=== PATIENT | female | born 1980 | race Two or more races ===

== ENCOUNTER 2019-12-28 16:21 | Emergency (ER) | payer SELFPAY ==
[~2019-12-28] VITALS: Ht 165.1 cm; Wt 143.6 kg
[~2019-12-28 16:21] MED LIST: AMOX500C PO; ANTI14DR4 OT
[2019-12-28 16:25] VITALS: BP 157/69
[2019-12-28] MEDS ORDERED: HYDROcodone/APAP 5/325MG 1 TAB TABLET PO ONE (17:00)
--- NOTE | 2019-12-28 17:14 | RAD ---
Exam: Right ankle 3 views INDICATION: Right ankle pain TECHNIQUE: Frontal, lateral and oblique views of the right ankle Comparisons: None FINDINGS: Evaluation is limited secondary to overlying material. Bone mineralization is normal. There is diffuse soft tissue swelling at the ankle. No acute fracture is identified. Joint spaces are well-maintained. IMPRESSION: Diffuse soft tissue swelling at the ankle without underlying acute osseous abnormality identified. Electronically signed by: Pierre Dutta MD (12/28/2019 5:11 PM) [id number]
--- NOTE | 2019-12-28 17:29 | PHYS DOC ---
Past Medical History Past Medical History: No Pertinent History Past Surgical History: No Surgical History Smoking Status: Never Smoker Alcohol Use: None General Adult EDM: Chief Complaint: ANKLE PROBLEM HPI: HPI: Patient is a 39 year old female, accompanied by her daughter, who presents to the emergency department with complaints of right lateral ankle pain and swelling after accidentally stepping into a hole in her yard and rolling her ankle. She currently rates her pain a 10 out of 10 on the pain scale, she denies any alleviating factors. The patient reports that the pain increases if she bears weight, she denies any radiation of the pain. Patient denies any head, neck, or back pain from the fall. Review of Systems: Review of Systems: Complete review of systems is negative unless otherwise documented in the HPI. Heart Score: Risk Factors: Risk Factors: DM, Current or recent (<one month) smoker, HTN, HLP, family history of CAD, obesity. Risk Scores: Score 0 - 3: 2.5% MACE over next 6 weeks - Discharge Home Score 4 - 6: 20.3% MACE over next 6 weeks - Admit for Clinical Observation Score 7 - 10: 72.7% MACE over next 6 weeks - Early Invasive Strategies Current Medications: Current Medications Medications (Trade) Dose Ordered Sig/Helen Start Time Stop Time Status Last Admin Dose Admin Acetaminophen/ Hydrocodone Bitart (Lortab 5/325) 1 tab 1X ONCE 12/28/19 17:00 12/28/19 17:01 DC Allergies: Allergies: Allergies Coded Allergies Type Severity Reaction Last Updated Verified No Known Drug Allergies 05/31/13 No Physical Exam: PE: Constitutional: Well developed, well nourished, no acute distress, non-toxic appearance, obese. [] HENT: Normocephalic, atraumatic, bilateral external ears normal, nose normal. [] Eyes: PERRLA, EOMI, conjunctiva normal, no discharge. [] Neck: Normal range of motion, no stridor. [] Cardiovascular:Heart rate regular rhythm Lungs & Thorax: Respirations even and unlabored, no retractions, no respiratory distress Skin: Warm, dry, no erythema, no rash. [] Extremities: Right ankle: Lateral tenderness to palpation, no crepitus, no obvious deformity, 1+ edema, no cyanosis, ROM intact Neurologic: Alert and oriented X 3, no focal deficits noted. [] Psychologic: Affect normal, judgement normal, mood normal. [] Current Patient Data: Vital Signs: Vital Signs Date Time Temp Pulse Resp B/P (MAP) Pulse Ox O2 Delivery O2 Flow Rate FiO2 12/28/19 16:25 98.4 98 16 157/69 (98) 98 Room Air 98.4 EKG: EKG: [] Radiology/Procedures: Radiology/Procedures: PROCEDURE: ANKLE RIGHT 3V Exam: Right ankle 3 views INDICATION: Right ankle pain TECHNIQUE: Frontal, lateral and oblique views of the right ankle Comparisons: None FINDINGS: Evaluation is limited secondary to overlying material. Bone mineralization is normal. There is diffuse soft tissue swelling at the ankle. No acute fracture is identified. Joint spaces are well-maintained. IMPRESSION: Diffuse soft tissue swelling at the ankle without underlying acute osseous abnormality identified.[] Course & Med Decision Making: Course & Med Decision Making Pertinent Labs and Imaging studies reviewed. (See chart for details) [] Dragon Disclaimer: Dragon Disclaimer: This electronic medical record was generated, in whole or in part, using a voice recognition dictation system. Departure Departure Impression: Primary Impression: Ankle pain Qualified Codes: M25.571 - Pain in right ankle and joints of right foot Disposition: HOME, SELF-CARE Condition: STABLE Referrals: UNKNOWN PCP NAME (PCP) АНДРЕЙ HOLLADN MD Patient Instructions: Ankle Pain Additional Instructions: Fill prescription(s) and use as directed. Recommend application of ice, elevation, and rest of affected extremity. Wear the Fantasma wrap that was placed until follow up appointment. Follow-up with Dr. Holland if symptoms persist. Return to the ER if your symptoms worsen. Scripts Naproxen (NAPROXEN) 500 Mg Tablet 1 TAB PO BID PRN for PAIN for 10 Days, #20 TAB 0 Refills Prov: JUAN C RICKS APRN 12/28/19 Justicifation of Admission Dx: Justifications for Admission: Justification of Admission Dx: N/A JUAN C RICKS APRN Dec 28, 2019 17:29
[2019-12-28] MEDS ORDERED: NAPR-514 PO (17:35)
== END 2019-12-28 17:39 | disposition home or self-care (01) ==
LOC: ER 16:21
DX: M25.571 Pain in right ankle and joints of right foot (principal); R60.0 Localized edema
CPT/HCPCS: 73610; 99283